=== PATIENT | female | born 1935 ===

== ENCOUNTER 2017-01-14 12:14 | Emergency (ER) | payer MEDICARE, OTHER ==
[~2017-01-14] VITALS: Ht 162.6 cm; Wt 36.4 kg
[2017-01-14 12:20] VITALS: Ht 162.6 cm; Wt 36.4 kg
--- NOTE | 2017-01-14 14:41 | ERD ---
ER Documentation Chief Complaint Date/Time DATE: 01/14/17 TIME: 12:14 Chief Complaint CARDIAC ARREST HPI History is limited due to the patient's clinical condition. Obtained entirely from transferring paramedics, review of snf records and supplemented by conversation with the staff at [facility] [place]. 81-year-old female of metastatic, malignant neuroendocrine tumor, hypertension, hypoglycemia, pleural effusions status post recent paracentesis and ascites brought to the ED via rescue ambulance for evaluation of cardiopulmonary arrest. Patient was last seen 9:30 this morning at breakfast. At 11:30 staff member went to administer medications and found the patient apneic and pulseless. 911 was activated and CPR initiated. When paramedics arrived they found the patient apneic, pulseless and asystolic with GCS 3. Patient was intubated and after 3 doses of epinephrine there was return of spontaneous circulation with palpable pulses but ongoing apnea requiring bagged ventilation. Hypoglycemia treated with D10 and patient transported to the ED. ROS All systems reviewed and are negative except as per history of present illness. Medications Home Meds Unable to Obtain Active Prescriptions or Reported Meds Allergies Allergies: Coded Allergies: Unable to Assess (Verified Allergy, Severe, 01/14/17) PMhx/Soc Reviewed in chart. As per HPI. FmHx Unknown Physical Exam Vitals Vital Signs Date Time Temp Pulse Resp B/P Pulse Ox O2 Delivery O2 Flow Rate FiO2 01/14/17 12:20 96.4 0 12 94 Physical Exam Const: Cachectic, cyanotic, unresponsive in severe distress with bagged ventilation via ET tube in progress. Head: Atraumatic. Bitemporal wasting Eyes: Sunken. Pupils are dilated and nonreactive. Negative corneal reflexes ENT: Endotracheal tube is in place. Mucous membranes are dry. Neck: No masses. JVD. Resp: Apneic. Diminished but equal bilaterally with bagged ventilation. Cardio: No heart sounds. No pulses. Abd: Soft, mildly distended with fluid wave. No bowel sounds Skin: Cyanotic and mottled. Back: No deformity Ext: No edema. Severe muscle wasting. Cold. Mottled. Neur: GCS:3 Physical exam is truncated due to the constraints imposed by the patient's clinical condition. Results 24 hrs Laboratory Tests Test 01/14/17 12:31 Bedside Glucose 68mg/dL Procedures/MDM DOCUMENTS REVIEWED: ED nurse, SNF notes MED[employer] DECISION MAKIN-year-old female of metastatic, malignant neuroendocrine tumor, hypertension, hypoglycemia, pleural effusions status post recent paracentesis and ascites brought to the ED via rescue ambulance in cardiopulmonary arrest. On arrival patient was cyanotic, mottled with bag ventilations via ET tube in progress. There were no palpable pulses. ACLS and BLS were performed with high quality chest compressions and minimal interruptions. Reversible causes were assessed and treated. Despite prolonged, aggressive resuscitative efforts with multiple medications as documented in the code records there was no ROSC and patient expires at 12:55. Time of : 12:55 Electrical Controls Engineer notified. CRITICAL CARE TIME: 35 minutes not including other separately reportable procedures. Time: 13:35. Melva, Patient's daughter arrived and was was informed. Departure Diagnosis: Primary Impression: Cardiac arrest Additional Impression: Metastatic malignant neuroendocrine tumor to liver Condition: Critical () SAAD SANTIAGO MD January 14, 2017 14:41
== END 2017-01-14 14:37 | disposition home or self-care (01) ==
LOC: E/R 12:14
DX: I46.9 Cardiac arrest, cause unspecified (principal); C7B.8 Other secondary neuroendocrine tumors; I10 Essential (primary) hypertension
CPT/HCPCS: 82962; 92950